=== PATIENT | female | born 1985 | race Hispanic/Latino ===

== ENCOUNTER 2017-12-29 14:50 | Emergency (ER) | payer MEDICAID ==
[2017-12-29 15:39] LABS: BASOPHILS % (AUTO) 1.1 % (0.0-5.0); EOSINOPHILS % (AUTO) 0.5 % (0.0-8.0); HEMATOCRIT 28.6 % (36-48); LYMPHOCYTES % (AUTO) 23.8 % (21.0-51.0); MEAN CORPUSCULAR HEMOGLOBIN 20.4 pg (27.0-33.0); MEAN CORPUSCULAR HGB CONC 31.9 g/dL (32.0-36.0); MEAN CORPUSCULAR VOLUME 63.9 fL (79-99); MONOCYTES % (AUTO) 8.6 % (3.0-13.0); PLATELET COUNT (AUTO) 265 K/uL (130-400); RED BLOOD CELL COUNT(AUTO) 4.47 MIL/uL (4.00-5.50); RED CELL DISTRIBUTION WIDTH 19.4 % (11.0-15.5); WHITE BLOOD COUNT (AUTO) 7.7 K/uL (4.8-10.8)
[2017-12-29 15:47] LABS: CREATININE 0.7 mg/dL (0.5-1.5); POTASSIUM 3.4 mmol/L (3.5-5.1)
[2017-12-29 16:38] LABS: BILIRUBIN,URINE Negative (NEGATIVE); COLOR,URINE Yellow (YELLOW); GLUCOSE, URINE (UA) Negative (NEGATIVE); KETONES,URINE 15 mg/dL (NEGATIVE); LEUKOCYTE ESTERASE ,URINE Moderate (NEGATIVE); NITRATE,URINE Negative (NEGATIVE); OCCULT BLOOD,URINE Negative (NEGATIVE); PH,URINE 5.5 (5.0-8.0); PROTEIN,URINE Negative (NEGATIVE); UROBILINOGEN,URINE 0.2 mg/dL (0.2-1.0)
[2017-12-29 16:47] LABS: APPEARANCE,URINE SLIGHTLY CLOUDY (CLEAR)
[2017-12-29 16:49] LABS: RBC,URINE 0-1 /HPF (0-1)
[2017-12-29 16:50] LABS: BACTERIA,URINE Few /HPF (None Seen); SQUAMOUS EPITHELIAL CELL,UR Few /HPF (0-2)
[2017-12-29 16:51] LABS: TRANSITIONAL EPI CELLS,URINE Rare /HPF (None Seen)
== END 2017-12-29 16:58 | disposition home or self-care (01) ==
LOC: EDH 14:50
DX: O20.0 Threatened abortion (principal); O99.011 Anemia complicating pregnancy, first trimester; O23.41 Unspecified infection of urinary tract in pregnancy, first trimester; Z3A.01 Less than 8 weeks gestation of pregnancy
CPT/HCPCS: 36415; 76801; 80048; 81001; 84702; 85025; 86900; 86901

== ENCOUNTER 2018-05-06 05:27 | Emergency (ER) | payer MEDICAID, OTHER ==
[2018-05-06] MEDS ORDERED: LIDOCAINE 5% TOPICAL PATCH TP ONE (06:10)
[2018-05-06 06:43] LABS: APPEARANCE,URINE CLEAR (CLEAR); BILIRUBIN,URINE NEGATIVE (NEGATIVE); COLOR,URINE YELLOW (YELLOW); GLUCOSE, URINE (UA) NEGATIVE (NEGATIVE); KETONES,URINE NEGATIVE (NEGATIVE); LEUKOCYTE ESTERASE ,URINE TRACE (NEGATIVE); NITRATE,URINE NEGATIVE (NEGATIVE); OCCULT BLOOD,URINE NEGATIVE (NEGATIVE); PROTEIN,URINE NEGATIVE (NEGATIVE); UROBILINOGEN,URINE 0.2 mg/dL (0.2-1.0)
[2018-05-06 07:22] LABS: HCG,QUAL RESULT POSITIVE (NEGATIVE)
[2018-05-06 07:23] LABS: BACTERIA,URINE Rare /HPF (None Seen); RBC,URINE 0-1 /HPF (0-1); SQUAMOUS EPITHELIAL CELL,UR Moderate /HPF (0-2)
== END 2018-05-06 07:15 | disposition home or self-care (01) ==
LOC: EDH 05:27
DX: O9A.212 Injury, poisoning and certain other consequences of external causes complicating pregnancy, second trimester (principal); S30.0XXA Contusion of lower back and pelvis, initial encounter; Z3A.26 26 weeks gestation of pregnancy; W18.39XA Other fall on same level, initial encounter; Y93.89 Activity, other specified; Y92.89 Other specified places as the place of occurrence of the external cause; Y99.8 Other external cause status
CPT/HCPCS: 81001; 81025

== ENCOUNTER 2018-07-29 13:37 | Observation (INO) | payer MEDICAID, OTHER ==
[~2018-07-29] VITALS: Ht 157.5 cm; Wt 83.0 kg
[2018-07-29 14:40] LABS: HEMATOCRIT 36.8 % (36-48); MEAN CORPUSCULAR HEMOGLOBIN 28.4 pg (27.0-33.0); MEAN CORPUSCULAR HGB CONC 33.8 g/dL (32.0-36.0); PLATELET COUNT (AUTO) 144 K/uL (130-400); RED BLOOD CELL COUNT(AUTO) 4.38 MIL/uL (4.00-5.50); RED CELL DISTRIBUTION WIDTH 29.8 % (11.0-15.5); WHITE BLOOD COUNT (AUTO) 10.7 K/uL (4.8-10.8)
[2018-07-29 14:40] LABS: APPEARANCE,URINE Clear (CLEAR); BILIRUBIN,URINE Negative (NEGATIVE); COLOR,URINE Yellow (YELLOW); GLUCOSE, URINE (UA) Negative (NEGATIVE); KETONES,URINE Trace mg/dL (NEGATIVE); LEUKOCYTE ESTERASE ,URINE Small (NEGATIVE); NITRATE,URINE Negative (NEGATIVE); OCCULT BLOOD,URINE Negative (NEGATIVE); PROTEIN,URINE Negative (NEGATIVE); UROBILINOGEN,URINE 0.2 mg/dL (0.2-1.0)
[2018-07-29] MEDS ORDERED: PROMETHAZINE HCL 25 MG/ML 1ML AMPULE IM SCH (15:00)
[2018-07-29 15:06] LABS: BACTERIA,URINE Few /HPF (None Seen); RBC,URINE 0-1 /HPF (0-1); SQUAMOUS EPITHELIAL CELL,UR 30-50 /HPF (0-2)
[2018-07-29] MEDS ORDERED: CEFTRIAXONE SODIUM 1 GM IVP SCH (15:30)
[2018-07-29] MEDS ORDERED: LACTATED RINGERS 1000ML 1,000 ML IV ONE (15:46)
[2018-07-29] MEDS: LACTATED RINGERS 1000ML 1,000 ML IV SCH ×2 (17:55→22:28)
[2018-07-29] MEDS ORDERED: TERBUTALINE SULFATE VIAL 1MG/ML SQ ONE (20:29)
[2018-07-29] MEDS ORDERED: CITRIC ACID/SODIUM CITRATE 30 ML UDCUP PO SCH (20:30)
[2018-07-29] MEDS ORDERED: LACTATED RINGERS 1000ML 1,000 ML IV SCH (20:30)
[2018-07-29] MEDS ORDERED: TERBUTALINE SULFATE VIAL 1MG/ML SQ SCH (20:30)
[2018-07-29] MEDS ORDERED: CITRIC ACID/SODIUM CITRATE 30 ML UDCUP ONE (20:31)
[2018-07-30] MEDS ORDERED: MEPERIDINE-PF 50 MG/ML SYG IM ONE
[2018-07-30] MEDS ORDERED: PROMETHAZINE HCL 25 MG/ML 1ML AMPULE IM ONE
[2018-07-31 10:17] LABS: HEPATITIS Bs ANTIGEN SCREEN P Negative (Negative)
== END 2018-07-30 09:15 | disposition home or self-care (01) ==
LOC: EDH 13:37 → LDH 13:38
PROVIDERS: ADMIT Obstetrics & Gynecology; ATTEND Obstetrics & Gynecology
DX: O62.9 Abnormality of forces of labor, unspecified (principal); O26.893 Other specified pregnancy related conditions, third trimester; R19.7 Diarrhea, unspecified; Z3A.37 37 weeks gestation of pregnancy
CPT/HCPCS: 36415; 76705; 81001; 85027; 86592; 86850; 86900; 86901; 87340; 96361 ×2; 96372 ×2; 96374; 99284; G0378 ×20; J0696; J2175; J2550 ×2; J3105; J7120 ×5; 96360